=== PATIENT | male | born 1995 | race Caucasian/White ===

== ENCOUNTER 2017-08-15 18:14 | Emergency (ER) | payer OTHER ==
[2017-08-15] MEDS ORDERED: OXYCODONE-ACETAMINOPHEN 5-325 MG TABLET PO ONE (18:46)
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
--- NOTE | 2017-08-15 19:12 | RADIOLOGY REPORT (SQ) ---
EXAM DESCRIPTION: SHOULDER LEFT 2 OR MORE VIEWS COMPLETED DATE/TIME: 08/15/2017 7:02 pm REASON FOR STUDY: pain COMPARISON: None. NUMBER OF VIEWS: Three views. TECHNIQUE: Internal rotation, external rotation, and Y view images acquired of the left shoulder. LIMITATIONS: None. FINDINGS: MINERALIZATION: Normal. BONES: No acute fracture or dislocation. There appears to been resection of the distal clavicle. Th e clavicle is elevated in relation to the acromion. JOINTS: No dislocation. VISUALIZED LUNGS AND RIBS: No pneumothorax. No rib fracture. SOFT TISSUES: No radiopaque foreign body. OTHER: No other significant finding. IMPRESSION: Prior resection of the distal clavicle. The clavicle is elevated in relation to the acr omion and therefore an AC separation cannot be excluded. TECHNICAL DOCUMENTATION: JOB ID: [id number] [employer]- All Rights Reserved Reading location - IP/workstation name: [email or web address]
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
[2017-08-15] MEDS ORDERED: IBUPROFEN 800 MG TABLET PO ONE (19:23)
[2017-08-15 20:14] VITALS: BP 147/60
== END 2017-08-15 20:14 | disposition home or self-care (01) ==
LOC: ER 18:14
PROC: 2W3RX1Z Immobilization of Left Lower Leg using Splint (ICD-10-PCS; principal; 2017-08-15)
DX: S93.402A Sprain of unspecified ligament of left ankle, initial encounter (principal); S90.512A Abrasion, left ankle, initial encounter; S50.312A Abrasion of left elbow, initial encounter; M25.512 Pain in left shoulder; V28.4XXA Motorcycle driver injured in noncollision transport accident in traffic accident, initial encounter
CPT/HCPCS: 99284; 73610; 73080; 73030; 29515; L1902